=== PATIENT | male | born 1980 | race African-American/Black ===

== ENCOUNTER 2018-10-04 11:24 | Emergency (ER) | payer MEDICAID, OTHER ==
[2018-10-04 11:42] VITALS: BP 119/70
--- NOTE | 2018-10-04 11:49 | UC ---
Skin Complaint HPI - HPI Summary HPI Summary: 37 yo male presents with "boils". He tells me that about a week ago he developed 2 boils on his right buttocks that drained and are improving, but one of them seems red and is very painful. Also has three similar appearing areas on his right anterior thigh, two of which are healing - these have been present the last 3-4 days. He has not taken anything OTC for his discomfort. He denies fever, chills, hx of MRSA, or bug bites. - History of Current Complaint Chief Complaint: UCSkin Stated Complaint: BOIL ON BOTTOM Hx Obtained From: Patient Onset/Duration: Gradual Onset Onset Severity: Severe Current Severity: Severe Pain Intensity: 8 Pain Scale Used: 0-10 Numeric - Allergy/Home Medications Allergies/Adverse Reactions: Allergies Allergy/AdvReac Type Severity Reaction Status Date / Time shrimp Allergy Intermediate throat Uncoded 10/04/18 11:41 gets itchy and swollen PMH/Surg Hx/FS Hx/Imm Hx - Additional Past Medical History Additional PMH: None - Surgical History Surgical History: Yes Surgery Procedure, Year, and Place: 1982 - skin grafting LEFT thigh - Family History Known Family History: Positive: Hypertension - Social History Lives: With Family Alcohol Use: Occasionally Substance Use Type: Marijuana Smoking Status (MU): Light Every Day Tobacco Smoker Type: Cigarettes Amount Used/How Often: 1/2ppd Length of Time of Smoking/Using Tobacco: 4+ years Household Exposure Type: Cigarettes - Immunization History Most Recent Tetanus Shot: unsure Review of Systems All Other Systems Reviewed And Are Negative: Yes Constitutional: Positive: Negative Skin: Positive: Other - "boils" Respiratory: Positive: Negative Cardiovascular: Positive: Negative Neurovascular: Positive: Negative Neurological: Positive: Negative Psychological: Positive: Negative Physical Exam - Summary Physical Exam Summary: GENERAL: NAD. WDWN. No pain distress. SKIN: RIGHT THIGH; #1 proximal medial thigh with 5.0cm area of erythema and central 1.0cm of induration without fluctuance or open wound. Mild TTP and warmth. Mild edema. No streaking or drainage. #2 distal medial thigh 1.0cm area of faint erythema with 3mm central healing wound with scant clear discharge. NTTP. No edema or fluctuance or induration. #3 Anterolateral thigh with 1.0cm area of mild erythema with 5mm blister formation with yellow appearing fluid/pus within. NTTP. LEFT BUTTOCKS #1: inferior aspect with 1.0cm area of faint erythema and ~3mm central healing. NTTP. No edema or drainage #2 Intermediate aspect with 2.5cm area of mild erythema and slight edema and warmth with central 1.0cm of slight induration. No open wound or drainage. NECK: Supple. Nontender. No lymphadenopathy. CHEST: No accessory muscle use. Breathing comfortably and in no distress. CV: Pulses intact. Cap refill <2seconds NEURO: Alert. PSYCH: Age appropriate behavior. Triage Information Reviewed: Yes Vital Signs: Initial Vital Signs Temp 96.7 F 10/04/18 11:36 Pulse 86 10/04/18 11:36 Resp 18 10/04/18 11:36 BP 119/70 10/04/18 11:36 Pulse Ox 97 10/04/18 11:36 Vital Signs Reviewed: Yes Course/Dx - Course Course Of Treatment: The blister on the anterior thigh was popped manually and yellow seropurulent material was expressed. A culture was obtained. He has no hx of MRSA, but given the multiple spreading skin lesions - there is a suspicion for MRSA, thus will cover him with clindamycin. No abscess appears amenable to I&D today, but made pt aware that one of these may come to a "head" and, if so, may require drainage . - Diagnoses Provider Diagnosis: Multiple abscesses of both legs Discharge - Sign-Out/Discharge Documenting (check all that apply): Patient Departure All imaging exams completed and their final reports reviewed: No Studies - Discharge Plan Condition: Stable Disposition: HOME Prescriptions: Clindamycin Cap(NF) [Clindamycin Cap 300 mg Cap(NF)] 300 mg PO TID #21 cap HYDROcodone/ACETAMIN 5-325 MG* [[place] 5-325 TAB*] 1 tab PO Q8H PRN #9 tab MDD 3 PRN Reason: Pain Patient Education Materials: Abscess (ED) Referrals: No Primary Care Phys,NOPCP [Primary Care Provider] - Additional Instructions: If you develop a fever, shortness of breath, chest pain, new or worsening symptoms - please call your PCP or go to the ED immediately. Take your antibiotic as directed - Billing Disposition and Condition Condition: STABLE Disposition: Home
--- NOTE | 2018-10-05 07:08 | UC ---
- Progress Note Progress Note: wound neg MRSA, + staph on Clinda await culture/sensitiviity no change Emily Course/Dx - Diagnoses Provider Diagnoses: Multiple abscesses of both legs Discharge - Sign-Out/Discharge Documenting (check all that apply): Post-Discharge Follow Up All imaging exams completed and their final reports reviewed: No Studies - Discharge Plan Condition: Stable Disposition: HOME Prescriptions: Clindamycin Cap(NF) [Clindamycin Cap 300 mg Cap(NF)] 300 mg PO TID #21 cap HYDROcodone/ACETAMIN 5-325 MG* [[place] 5-325 TAB*] 1 tab PO Q8H PRN #9 tab MDD 3 PRN Reason: Pain Patient Education Materials: Abscess (ED) Referrals: No Primary Care Phys,NOPCP [Primary Care Provider] - Additional Instructions: If you develop a fever, shortness of breath, chest pain, new or worsening symptoms - please call your PCP or go to the ED immediately. Take your antibiotic as directed - Billing Disposition and Condition Condition: STABLE Disposition: Home
== END 2018-10-04 12:07 | disposition home or self-care (01) ==
LOC: UCEAST 11:24
DX: L02.416 Cutaneous abscess of left lower limb (principal); L02.415 Cutaneous abscess of right lower limb; B95.61 Methicillin susceptible Staphylococcus aureus infection as the cause of diseases classified elsewhere; F17.210 Nicotine dependence, cigarettes, uncomplicated
CPT/HCPCS: 87070; 87077; 87186; 87205; 87640; 87641; 99202; G0463

== ENCOUNTER 2018-12-15 12:55 | Emergency (ER) | payer OTHER ==
[2018-12-15 13:05] VITALS: BP 130/92
--- NOTE | 2018-12-15 13:18 | ED ---
Skin Complaint - HPI Summary HPI Summary: 38 year old M presents to [facility] with a chief complaint of suture removal. Symptoms aggravated by nothing. Symptoms alleviated by nothing. Patient denies discharge but reports slight redness. - History of Current Complaint Chief Complaint: EDLacSutureRecheck Stated Complaint: NEEDS ZAK REMOVED PER PT Hx Obtained From: Patient Onset/Duration: Still Present Pain Intensity: 0 Pain Scale Used: 0-10 Numeric Aggravating Symptom(s): Nothing Alleviating Symptom(s): Nothing - Allergy/Home Medications Allergies/Adverse Reactions: Allergies Allergy/AdvReac Type Severity Reaction Status Date / Time shrimp Allergy Intermediate throat Uncoded 11/28/18 13:37 gets itchy and swollen PMH/Surg Hx/FS Hx/Imm Hx Endocrine/Hematology History: Denies: Hx Diabetes, Hx Thyroid Disease Cardiovascular History: Denies: Hx Hypertension Respiratory History: Denies: Hx Asthma, Hx Chronic Obstructive Pulmonary Disease (COPD) GI History: Denies: Hx Ulcer Sensory History: Denies: Hx Cataracts, Hx Legally Blind, Hx Deafness Opthamlomology History: Denies: Hx Cataracts, Hx Legally Blind - Surgical History Surgery Procedure, Year, and Place: 1982 - skin grafting LEFT thigh Infectious Disease History: No Infectious Disease History: Denies: Hx Clostridium Difficile, Hx Hepatitis, Hx Human Immunodeficiency Virus (HIV), Hx of Known/Suspected MRSA, Hx Shingles, Hx Tuberculosis, Hx Known/ Suspected VRE, Hx Known/Suspected VRSA, History Other Infectious Disease, Traveled Outside the [place] in Last 30 Days - Family History Known Family History: Positive: Hypertension - Social History Alcohol Use: Occasionally Hx Substance Use: Yes Substance Use Type: Reports: Marijuana Hx Tobacco Use: Yes Smoking Status (MU): Light Every Day Tobacco Smoker Type: Cigarettes Amount Used/How Often: 1/2ppd Length of Time of Smoking/Using Tobacco: 4+ years Review of Systems Negative: Fever Skin: Other - suture removal Positive: Other - dnies discharge, reports slight redness All Other Systems Reviewed And Are Negative: Yes Physical Exam - Summary Physical Exam Summary: Constitutional: Well-developed, Well-nourished, Alert. (-) Distressed Skin: Right leg with laceration present, 5 zak present, well appearing wound with no fluctuation, induration or tenderness HENT: Normocephalic; Atraumatic Eyes: Conjunctiva normal Neck: Musculoskeletal ROM normal neck. (-) JVD, (-) Stridor, (-) Tracheal deviation Cardio: Rhythm regular, rate normal, Heart sounds normal; Intact distal pulses; The pedal pulses are 2+ and symmetric. Radial pulses are 2+ and symmetric. (-) Murmur Pulmonary/Chest wall: Effort normal. (-) Respiratory distress, (-) Wheezes, (-) Rales Abd: Soft, (-) tenderness, (-) Distension, (-) Guarding, (-) Rebound Musculoskeletal: (-) Edema Lymph: (-) Cervical adenopathy Neuro: Alert, Oriented x3 Psych: Mood and affect Normal Triage Information Reviewed: Yes Vital Signs On Initial Exam: Initial Vitals Temp Pulse Resp BP Pulse Ox 98.0 F 78 19 130/92 98 12/15/18 13:03 12/15/18 13:03 12/15/18 13:03 12/15/18 13:03 12/15/18 13:03 Vital Signs Reviewed: Yes Diagnostics - Vital Signs Vital Signs Temp Pulse Resp BP Pulse Ox 12/15/18 13:03 98.0 F 78 19 130/92 98 - Laboratory Lab Statement: Any lab studies that have been ordered have been reviewed, and results considered in the medical decision making process. Course/Dx - Course Course Of Treatment: Patient is here to get his zak removed. Patient's wound is well-appearing with no signs of infection. Patient had successful removal of zak. - Diagnoses Provider Diagnoses: Visit for suture removal Discharge ED - Sign-Out/Discharge Documenting (check all that apply): Patient Departure - discharge Patient Received Moderate/Deep Sedation with Procedure: No - Discharge Plan Condition: Stable Disposition: HOME Patient Education Materials: Stitches Removal (ED) Referrals: [facility] [Outside] - If Needed Additional Instructions: Come back to ED for any worsening redness or for pus coming out. Visit primary care provider if needed. - Billing Disposition and Condition Condition: STABLE Disposition: Home - Attestation Statements Document Initiated by Scribe: Yes Documenting Scribe: Renetta Valdez Provider For Whom Scribe is Documenting (Include Credential): Dr. Michael Cerrato MD Scribe Attestation: Renetta Traylor, scribed for Dr. Michael Cerrato MD on 09/07/19 at 1621. Scribe Documentation Reviewed: Yes Provider Attestation: The documentation as recorded by the scribe, Renetta Valdez accurately reflects the service I personally performed and the decisions made by me, Dr. Michael Cerrato MD Status of Scribe Document: Viewed
== END 2018-12-15 13:22 | disposition home or self-care (01) ==
LOC: ED 12:55
DX: S81.811D Laceration without foreign body, right lower leg, subsequent encounter (principal); W45.8XXD Other foreign body or object entering through skin, subsequent encounter; F17.210 Nicotine dependence, cigarettes, uncomplicated
CPT/HCPCS: 99282